=== PATIENT | male | born 1960 | race Caucasian/White ===

== ENCOUNTER 2021-03-10 22:29 | Inpatient (IN) | payer BC, OTHER ==
[~2021-03-10] VITALS: Ht 182.9 cm; Wt 82.6 kg
[2021-03-10] MEDS ORDERED: HYDR12.517 PO (22:42)
[2021-03-10] MEDS ORDERED: ASPI-963 PO (22:42)
[2021-03-10] MEDS ORDERED: MAGN400T9 PO (22:42)
[2021-03-10] MEDS ORDERED: TAMS-11 PO (22:42)
[2021-03-10] MEDS ORDERED: BYSTOLIC PO (22:44)
--- NOTE | 2021-03-10 22:47 | NUR ---
PT ROSHANAgatha FROM [facility] WHERE HE LIV[facility], WENT INTO ED TODAY FOR DIZZINESS, FOUND TO HAVE OCCULT BLOOD IN STOOL. PT HAS NO HX OF SAME. PT CHANGED INTO GOWN, PLACED ON SPO2/BP/ECG MONITORING AT THIS TIME, BED IN LOWEST, RAILS ENGAGED, CALL LIGHT ON LAP. PT DENIES DIZZINESS AT THIS TIME. VSS. WCTM. RECEIVED 3L NS, 40 MG [employer]
[2021-03-10] MEDS ORDERED: SODIUM CHLORIDE 0.9% 1,000 ML IV ONE (23:00)
[2021-03-10] MEDS ORDERED: SODIUM CHLORIDE FLUSH 10ML SYR IVF ONE (23:00)
[2021-03-10] MEDS ORDERED: PANTOPRAZOLE 80 MG in SODIUM CHLORIDE 0.9% 100 ML IV SCH (23:00)
[2021-03-10] MEDS ORDERED: PANTOPRAZOLE 80 MG in SODIUM CHLORIDE 0.9% 50 ML IVPB ONE (23:00)
[2021-03-10 23:14] LABS: BASOPHILS % (AUTO) 1 % (0-1); EOSINOPHILS % (AUTO) 1 % (1-7); LYMPHOCYTES % (AUTO) 24 % (22-44); MEAN CORPUSCULAR HEMOGLOBIN 30.2 pg (27.5-34.5); MEAN CORPUSCULAR HGB CONC 33.9 g/dL (33.2-36.2); MEAN PLATELET VOLUME 7.2 fL (7.4-10.4); MONOCYTES % (AUTO) 10 % (2-9); NEUTROPHILS % (AUTO) 64 % (42-75); PLATELET COUNT 186 x10^3/uL (130-400); RED BLOOD COUNT 2.95 x10^6/uL (4.38-5.82); RED CELL DISTRIBUTION WIDTH 12.7 % (9.4-14.8)
[2021-03-10 23:26] LABS: CHLORIDE 110 mmol/L (98-107)
[2021-03-10 23:32] LABS: INTERNATIONAL NORMALIZED RATIO 1.11 (0.93-1.1); PROTHROMBIN TIME 11.8 Seconds (9.6-11.5)
--- NOTE | 2021-03-10 23:35 | NUR ---
Patient is resting comfortably in bed. Bed in lowest, rails engaged, call light on lap. MEDICATED PER MAR, NO CHANGES IN CONDITION AT THIS TIME. NAD, PROVIDED PILLOW FOR COMFORT, Vital Signs within normal limits. WCTM.
[2021-03-10 23:46] LABS: ALANINE AMINOTRANSFERASE 46 U/L (12-78); ALBUMIN 2.4 g/dL (3.4-5.0); ALKALINE PHOSPHATASE 52 U/L (45-117); ANION GAP 3 mmol/L (5-15); BILIRUBIN,TOTAL 0.8 mg/dL (0.2-1.0); CALCIUM 7.4 mg/dL (8.5-10.1); CREATININE 0.57 mg/dL (0.7-1.3); TROPONIN I < 0.015 ng/mL (0.000-0.045)
[2021-03-11] VITALS (8 sets, daily range): BP systolic 96–108; BP diastolic 62–70
[2021-03-11] MEDS ORDERED: ONDANSETRON 2MG/ML, 2ML IVPush PRN ×2 (01:00→12:00)
[2021-03-11] MEDS ORDERED: morphine SULFATE 10 MG/ML, 1ML IVPush PRN (01:00)
[2021-03-11] MEDS ORDERED: LABETALOL 5MG/ML, 20ML IVPush PRN (01:00)
--- NOTE | 2021-03-11 01:14 | NUR ---
Patient is resting comfortably in bed. Bed in lowest, rails engaged, call light on lap. LAYIGN ON RIGHT SIDE, EYES CLOSED, EVEN AND UNLABORED RESPIRATIONS, WCTM.
[2021-03-11 01:29] LABS: BASOPHILS % (AUTO) 1 % (0-1); EOSINOPHILS % (AUTO) 2 % (1-7); LYMPHOCYTES % (AUTO) 27 % (22-44); MEAN CORPUSCULAR HEMOGLOBIN 30.3 pg (27.5-34.5); MEAN CORPUSCULAR HGB CONC 33.9 g/dL (33.2-36.2); MEAN PLATELET VOLUME 7.5 fL (7.4-10.4); MONOCYTES % (AUTO) 12 % (2-9); NEUTROPHILS % (AUTO) 59 % (42-75); PLATELET COUNT 176 x10^3/uL (130-400); RED CELL DISTRIBUTION WIDTH 12.7 % (9.4-14.8)
[2021-03-11] MEDS: LACTATED RINGERS 1,000 ML IV SCH ×2 (03:42→18:34)
[2021-03-11] MEDS: NICOTINE 14MG/24 HR PATCH.TD24 TD SCH (03:42)
[2021-03-11] MEDS: BYSTOLIC MC SCH ×2 (04:00→12:55)
[2021-03-11] MEDS ORDERED: PANTOPRAZOLE 40 MG IV IVPush SCH (09:00)
[2021-03-11] MEDS ORDERED: LIDOCAINE 1%, 20ML ONE (11:10)
[2021-03-11] MEDS ORDERED: PROPOFOL 10 MG/ML, 20ML ONE (11:10)
[2021-03-11] MEDS ORDERED: FENTANYL PF 100 MCG/2ML ONE (11:45)
[2021-03-11] MEDS ORDERED: EPINEPHRINE SYRINGE 0.1 MG/ML, 10ML ONE (11:47)
[2021-03-11] MEDS ORDERED: OXYcodone 5 MG/5 ML ORAL.SOL UDC ONE (11:51)
[2021-03-11] MEDS ORDERED: ACETAMINOPHEN 325 MG TABLET PO PRN ×2 (12:00→21:00)
[2021-03-11] MEDS ORDERED: METOPROLOL 1 MG/ML, 5ML IV PRN (12:00)
[2021-03-11] MEDS ORDERED: hydrALAzine 20 MG/ML, 1ML IV PRN (12:00)
[2021-03-11] MEDS ORDERED: MEPERIDINE/PF 25MG/0.5ML IVPush PRN (12:00)
[2021-03-11] MEDS ORDERED: PROMETHAZINE 25 MG/ML, 1ML IVPush PRN (12:00)
[2021-03-11] MEDS ORDERED: PROMETHAZINE 25 MG SUPP PR PRN (12:00)
[2021-03-11] MEDS ORDERED: LABETALOL 5MG/ML, 20ML IV PRN (12:00)
[2021-03-11] MEDS ORDERED: LORazepam 2 MG/ML, 1ML IVPush PRN (12:00)
[2021-03-11] MEDS ORDERED: EPHEDRINE 50 MG/ML, 1ML IVPush PRN (12:00)
[2021-03-11] MEDS ORDERED: OXYcodone 5 MG/5 ML ORAL.SOL UDC PO PRN (12:00)
[2021-03-11] MEDS ORDERED: FENTANYL PF 100 MCG/2ML IV PRN (12:00)
[2021-03-11] MEDS: PANTOPRAZOLE 80 MG in SODIUM CHLORIDE 0.9% 100 ML IV SCH (12:56)
[2021-03-11] MEDS: METOPROLOL TARTRATE 50 MG TAB PO SCH (18:42)
[2021-03-11] MEDS ORDERED: ACETAMINOPHEN 325 MG TABLET ONE (20:44)
[2021-03-12] VITALS (16 sets, daily range): BP systolic 88–120; BP diastolic 63–85
[2021-03-12] MEDS: PANTOPRAZOLE 80 MG in SODIUM CHLORIDE 0.9% 100 ML IV SCH ×3 (00:16→21:20)
[2021-03-12 02:15] LABS: ALANINE AMINOTRANSFERASE 35 U/L (12-78); ALBUMIN 1.9 g/dL (3.4-5.0); ANION GAP 5 mmol/L (5-15); CALCIUM 7.3 mg/dL (8.5-10.1); CHLORIDE 109 mmol/L (98-107); CREATININE 0.65 mg/dL (0.7-1.3)
[2021-03-12 02:18] LABS: ALKALINE PHOSPHATASE 39 U/L (45-117); BILIRUBIN,TOTAL 0.9 mg/dL (0.2-1.0); TOTAL PROTEIN 4.1 g/dL (6.4-8.2)
[2021-03-12] MEDS: LACTATED RINGERS 1,000 ML IV SCH ×2 (04:21→10:32)
[2021-03-12] MEDS ORDERED: DIPHENHYDRAMINE 50 MG/ML, 1ML IVPush ONE ×2 (05:00→16:30)
[2021-03-12] MEDS ORDERED: LABETALOL 5MG/ML, 20ML IVPush PRN (05:00)
[2021-03-12] MEDS: NICOTINE 14MG/24 HR PATCH.TD24 TD SCH (05:10)
[2021-03-12] MEDS: METOPROLOL TARTRATE 50 MG TAB PO SCH ×2 (05:37→17:28)
[2021-03-12] MEDS ORDERED: MELATONIN 5 MG TABLET PO PRN (21:00)
[2021-03-13 01:54] VITALS: BP 114/73
[2021-03-13] MEDS: METOPROLOL TARTRATE 50 MG TAB PO SCH (05:57)
[2021-03-13 07:11] VITALS: BP 128/83
[2021-03-13] MEDS: PANTOPRAZOLE 80 MG in SODIUM CHLORIDE 0.9% 100 ML IV SCH (07:30)
[2021-03-13] MEDS: NICOTINE 14MG/24 HR PATCH.TD24 TD SCH (09:00)
[2021-03-13] MEDS ORDERED: OMEP-110 PO (12:12)
[2021-03-16] MEDS ORDERED: CLAR500T9 PO (18:22)
[2021-03-16] MEDS ORDERED: METR-90 PO (18:22)
== END 2021-03-13 13:30 | disposition home or self-care (01) | DRG 368 ==
LOC: ED 23:00 → 4EST 03-11 02:27
PROVIDERS: ADMIT Internal Medicine; ATTEND Hospitalist
PROC: 3E0G8GC Introduction of Other Therapeutic Substance into Upper GI, Via Natural or Artificial Opening Endoscopic (ICD-10-PCS; 2021-03-11)
PROC: 30233N1 Transfusion of Nonautologous Red Blood Cells into Peripheral Vein, Percutaneous Approach (ICD-10-PCS; 2021-03-11)
PROC: 0W3P8ZZ Control Bleeding in Gastrointestinal Tract, Via Natural or Artificial Opening Endoscopic (ICD-10-PCS; principal; 2021-03-11 11:15)
DX: K20.91 Esophagitis, unspecified with bleeding (principal); K25.4 Chronic or unspecified gastric ulcer with hemorrhage; K26.4 Chronic or unspecified duodenal ulcer with hemorrhage; D62 Acute posthemorrhagic anemia; I10 Essential (primary) hypertension; K76.0 Fatty (change of) liver, not elsewhere classified; N40.0 Benign prostatic hyperplasia without lower urinary tract symptoms; F12.90 Cannabis use, unspecified, uncomplicated; K44.9 Diaphragmatic hernia without obstruction or gangrene; Z20.822 Contact with and (suspected) exposure to COVID-19; K29.80 Duodenitis without bleeding; E88.09 Other disorders of plasma-protein metabolism, not elsewhere classified; F15.10 Other stimulant abuse, uncomplicated; Z79.82 Long term (current) use of aspirin; Z79.899 Other long term (current) drug therapy
CPT/HCPCS: 36415; 87338; 99285; J3490; 36430; 80053; 83036; 83690; 83735; 84100; 84443; 84484; 85014; 85018; 85025; 85610; 85730; 86078; 86850; 86900; 86923; 87040; 87635; 93005; G0378; J2704; J3010; C9113; J1200; J7030; J7120; P9016